=== PATIENT | male | born 1945 | race Caucasian/White ===

== ENCOUNTER 2017-07-21 10:30 | Observation (INO) | payer OTHER ==
[2017-07-21] VITALS (18 sets, daily range): BP systolic 111–166; BP diastolic 67–92; PULSE 66–83; TEMP 36.3–36.9; O2SAT 93–97; Ht 160 cm; Wt 74.0 kg
[~2017-07-21] VITALS: Ht 160 cm; Wt 74.0 kg
--- NOTE | 2017-07-21 10:24 | History and Physical ---
History & Physical Date of Service Jul 21, 2017. History & Physical CC: End stage renal disease with malfunctioning avf of the right arm HPI: Mr. Helms is a 69-year-old gentleman who is on dialysis at this time who recently had a thrombectomy of his fistula times 2 followed by a revision of his fistula. He is here for a fistulogram for a malfunctioning fistula ALLERGIES: POSITIVE FOR AMOXICILLIN, FENTANYL, VENOFER AND VITAMIN K. Medications: Listed on his chart and reviewed. No changes were made. Past Medical History: Positive for hypertension, heart disease, diabetes, renal failure. Past Surgical History: Cholecystectomy, appendectomy, stomach surgery, hernia repair, bowel surgeries in , , and . Family History: Positive for heart disease, hypertension and stroke. Social History: He quit smoking in 1989, he had smoked for 25 years prior. Review of Systems: Review of 10 systems were obtained. His only complaints were irregular heartbeat. Respiratory: Cough, wheezing, shortness of breath and bronchitis. He also complained of heartburn and prostate dysfunction. Physical Examination: The patient is awake, oriented x3, he is in no apparent distress. He is mildly obese. His blood pressure is 150/60 in the left, 146/60 on the right. Head and neck within normal limits. No carotid bruits. Lungs are clear. Heart: regular rate and rhythm, with occasional irregular beats. Lungs are clear with occasional crackles. Abdominal exam is benign. There are multiple scars present. Vascular exam was radials, carotids, supratemporal arteries and femorals are +2 bilaterally. Neurologic exam is grossly intact. Good thrill in fistula Impression : End-stage renal disease Malfunctioning avf. Plan and Recommendations: Patient is admitted for a fistulogram and possible intervention of his right upper arm fistula. He understands the risks, options and benefits, and agrees to go on with this procedure.
[~2017-07-21 10:30] MED LIST: ADVIN25/60 INH; ALBU1NEB10 INH; ALBUAER2 INH; ALFU10TA2 PO; ASCO10003 PO; ASPI1TAB83 PO; ATOR80TA PO; BENZ100C84 PO; CLINDAMYCIN 600 MG/54 ML D5W IV SCH; CLOB-65 TOP; CRD200 PO; D5W AND 1/4NSS 1000 ML IV SCH; DIGO0.122 PO; DILT-119 PO; DOCU-94 PO; EPGI10M SC; ERGO1CAP35 PO; EXELON PO; FENO67CA PO; FERR1TAB68 PO; FERR325T51 PO; FLUT0.15; FLUT0.15 NAE; FOLITAB22 PO; GABA-112 PO; HPRIS5MX SQ; HYDR-5688 PO; INSUINJ4 SQ; ISOS60TA2 PO; LACT10CA3; LIDO5DIS10 TOP; LOSA50TA6 PO; META-38 PO; METO25TA56 PO; MONT1TAB3 PO; NTRGSL/4 UT; NVLGI SC; OMEG10007 PO; OMEP20CA9 PO; POLY1POW2 PO; POLY99.02 OP; ROFL1TAB5 PO; SERT1TAB71 PO; TIOTCAP INH; TRAZ50TA35 PO; TRIA0.1C20 TOP; VITA100C4 PO; VITA1CRE PO; WARF2.5T8 PO; WARF5TAB90 PO
[2017-07-21] MEDS ORDERED: dulcolax PO (11:27)
[2017-07-21] MEDS ORDERED: auryxia PO (11:27)
[2017-07-21] MEDS ORDERED: OXYC1TAB3 PO (11:27)
[2017-07-21 11:29] LABS: PARTIAL THROMBOPLASTIN RATIO 1.2; PROTHROMBIN TIME (PATIENT) 10.5 SECONDS (9.0-12.0)
[2017-07-21] MEDS ORDERED: OXYCODONE/ACETAMINOPHEN 5-325 TAB PO PRN (11:30)
[2017-07-21] MEDS ORDERED: SODIUM POLYST. SULF SUSP 15G/60ML PO STA (13:22)
--- NOTE | 2017-07-21 13:22 | Progress Note ---
Progress Note Date of Service Jul 21, 2017. Progress Note Patient did not have dialysis since Thursday. Potassium today was 6.1 today. Per nephology, patient will need dialysis.
[2017-07-21] MEDS ORDERED: DEXTROSE 50% 50 ML SYR IV PRN (14:30)
[2017-07-21] MEDS ORDERED: GLUCAGON FOR INJ 1 MG VIAL SQ PRN (14:30)
[2017-07-21] MEDS ORDERED: GLUCOSE 10 TABS/TUBE PO PRN (14:30)
[2017-07-21] MEDS ORDERED: GLUCOSE 40% GEL 15 GM TUBE PO PRN (14:30)
--- NOTE | 2017-07-21 14:43 | History and Physical ---
History & Physical Date & Time of Service: Jul 21, 2017 at 14:40 Chief Complaint: End Stage Renal Disease Primary Care Physician: Dr. Salas History of Present Illness Source: patient, clinic records, hospital records This is a 72yo M with a PMH of ESRD requiring dialysis, DM II, CAD (s/p stents) , HF with preserved EF, COPD, HTN, HLD, depression and JENARO (on CPAP) who presented today for a fistulogram by Dr. Tomas. Has a history of a thrombectomy of his fistula twice before following the initial revision. Was here today for a fistulogram of his malfunctioning fistula. During pre- operative labs, patient was found to have a serum potassium level elevated to 6.1. Receives dialysis MWF normally but did not receive dialysis this past Thursday. Per Dr Tomas, fistulogram procedure will be postponed until after patient is dialyzed. Denies any lightheadedness, headache, visual changes, CP, palpitations, SOB, abdominal pain, nausea, vomiting, dysuria, constipation or diarrhea. No LE swelling. Patient reports taking all medications as directed. Past Medical/Surgical History Medical Problems: (1) CAD (coronary artery disease) Status: Chronic (2) COPD (chronic obstructive pulmonary disease) Status: Chronic (3) Depression Status: Chronic (4) Diabetes mellitus, type II Status: Chronic (5) Diastolic HF (heart failure) Status: Chronic (6) GERD (gastroesophageal reflux disease) Status: Chronic (7) HLD (hyperlipidemia) Status: Chronic (8) HTN (hypertension) Status: Chronic (9) Lumbar disc herniation with radiculopathy Status: Chronic (10) JENARO on CPAP Status: Chronic Family History Diabetes mellitus FATHER BROTHER Stroke FATHER Social History Smoking Status: Former Smoker (quit in 1989 ) Alcohol Use: none Drug Use: none Marital Status: Housing status: lives with significant other Occupational Status: retired Immunizations History of Influenza Vaccine: Yes Influenza Vaccine Date: Jun 27, 2005 History of Tetanus Vaccine?: Yes Tetanus Immunization Date: Dec 26, 2000 History of Pneumococcal: Yes Pneumococcal Date: Dec 26, 2001 History of Hepatitis B Vaccine: No Multi-Drug Resistant Organisms History of MDRO: No Allergies Coded Allergies: Amoxicillin (Verified Adverse Reaction, Unknown, DIZZY, 04/08/16) Ferric Oxide (Verified Adverse Reaction, Unknown, IV SEVERE CHEST PAIN, 04/08/16) Vitamin K (Verified Adverse Reaction, Unknown, CHEST PAIN WITH IV FORM, 04/08/16) Home Medications Scheduled Alfuzosin Hcl (Uroxatral), 10 MG PO QAM Artificial Tears (Artificial Tears), 1-2 DROPS OP BID Ascorbic Acid (Vitamin C), 500 MG PO QPM Aspirin (Aspirin), 1 TAB PO QAM Atorvastatin Calcium (Lipitor), 80 MG PO QPM Benzonatate (Tessalon Perles), 1 CAP PO TID Epoetin Manuel (Procrit), 10,000 UNIT SC DIRECTED Ergocalciferol (Vitamin D Cap), 50,000 INTER.UNIT PO MONTHLY Ferric Citrate (Auryxia), 210 MG PO ACM Ferrous Sulfate (Iron Supplement), 2,650 MG PO BID Fluticasone Prop/Salmeterol (Advair Diskus 250/50 60 Dose), 1 PUFF INH BID Fluticasone Propionate (Nasal) (Flonase Allergy Relief), 2 SPRAYS JASPAL QPM Fluticasone Propionate (Nasal) (Flonase Allergy Relief), 2 SPRAYS DAILY Folic Acid-Vitamin B6-Vitamin (B Complex/Folic Acid), PO DAILY Heparin Sod (Porcine) (Heparin Sq), 5,000 UNITS SQ DIALYSIS DAYS Insulin Aspart (Novolog), 10 UNITS SC AC Insulin Glargine (Lantus Solostar Pen), 35 UNIT SQ BID Isosorbide Mononitrate (Imdur Ext Rel), 30 MG PO QAM Metoprolol Tartrate (Lopressor) (Lopressor), 25 MG PO QAM Montelukast Sodium (Singulair), 10 MG PO QPM Nitroglycerin (Nitrostat), 0.4 MG UT PRN Omeprazole (Prilosec), 20 MG PO BID Sertraline Hcl (Zoloft), 50 MG PO HS Tiotropium [place] (Spiriva Handihaler), 1 CAP INH DAILY Triamcinolone Acet 0.1% (Aristocort 0.1%), Unknown Dose TOP BID [auryxia], 1 GM PO BIDM Scheduled PRN Albuterol (Ventolin), 2 PUFFS INH QID PRN for Shortness of Breath Albuterol Sulf (Albuterol Sulfate 0.083% For Inh), 3 ML INH Q4 PRN for Wheezing Clobetasol Propionate 0.05% (Temovate 0.05%), 1 APPLN TOP BID PRN for Affected Skin Folds Oxycodone Ir (Roxicodone Ir), 1-2 TAB PO Q6 PRN for Pain [dulcolax], 100 MG PO DAILY PRN for Constipation Miscellaneous Medications Gabapentin (Neurontin), 100 MG PO Review of Systems Ten systems reviewed and negative except as noted in the HPI. Physical Exam Vital Signs Date Time Temp Pulse Resp B/P (MAP) Pulse Ox O2 Delivery O2 Flow Rate FiO2 07/21/17 11:29 36.7 83 22 143/70 (94) 97 Room Air General Appearance: no apparent distress, + pertinent finding (Chronically ill appearing ) Head: normocephalic, atraumatic Eyes: normal inspection, PERRL, sclerae normal (Conjunctiva normal ) ENT: normal ENT inspection, hearing grossly normal, pharynx normal (Dry mucous membranes ) Neck: supple, no JVD, trachea midline Respiratory/Chest: chest non-tender, lungs clear, no respiratory distress, no accessory muscle use, + wheezing (Diffuse wheezing throughout lung jensen. ) Cardiovascular: regular rate, rhythm, no murmur Abdomen/GI: normal bowel sounds, non tender, soft, no organomegaly Back: normal inspection Extremities/Musculoskelatal: normal inspection, no calf tenderness, no pedal edema, non-tender, + pertinent finding (Fistula access in RUE ) Neurologic/Psych: no motor/sensory deficits, alert, normal mood/affect, oriented x 3 Skin: normal color (Diffuse ecchymosis ) Diagnostics Laboratory Results Results Past 24 Hours Test 07/21/17 11:07 07/21/17 11:09 Range/Units Prothrombin Time 10.5 9.0-12.0 SECONDS Prothromb Time International Ratio 1.0 0.9-1.1 Activated Partial Thromboplast Time 30.8 21.0-31.0 SECONDS Partial Thromboplastin Ratio 1.2 Potassium Level 6.1 3.5-5.1 mmol/L Bedside Glucose 92 70-99 mg/dl Impression Assessment and Plan This is a 72yo M with a PMH of ESRD requiring dialysis, DM II, CAD (s/p stents x 2), HF with preserved EF, COPD, HTN, HLD, depression and JENARO (on CPAP) who presented today for a fistulogram by Dr. Tomas. Hyperkalemia 2/2 ESRD: -K of 6.1 on lab work -Nephro consulted for dialysis -EKG pre and post dialysis -Recheck K -Fistulogram to be rescheduled by Dr. Tomas DM II: -Hgb a1c pending -Held home agents -SSI while in-patient. Add basal if indicated -BSG checks AC HS COPD: -Stable -Cont home inhalers, singulair HTN: -Cont home dose metoprolol HLD: -Cont statin CAD (s/p stents): -Stable, no CP -EKGs pending Diastolic HF: -Compensated -Cont imdur, metoprolol, baby aspirin JENARO: -CPAP qHS GERD: -Cont PPI DVT Ppx: Heparin SQ as directed on dialysis days Code status: FULL PCP: Josue Dispo: Plan to return home once medically stable Patient seen in collaboration with Dr. Reid. Please see addendum. Attending physician, Dr. Reid, addendum: I have seen and examined the patient with NAHEED White and agree with the assessment and plan as above and would like to comment that this a 72 year old well appearing male patient who was scheduled for vascular procedure fistulogram today which could not be performed due to abnormal labs hyperkalemia with serum potassium 6.1. As per nephrology, Dr. Hsieh, patient to be admitted to hospital service for dialysis. Patient may need subsequent lab post-dialysis before discharge. As per vascular surgeon Dr. Tomas, patient does not need to be kept inpatient for fistulogram which can be done at a later date as outpatient. Patient and her family member was explained these plans. They agree for the patient to stay overnight if needed. Patient also has EKG obtained which did not show any obvious morphologies of hyperkalemia induced EG changes. Patient denies chest pain or shortness of breath or palpitations. Level of Care Med/Surg Resuscitation Status FULL RESUSCITATION VTE Prophylaxis VTE Risk Assessment Done? Y/N: Yes Risk Level: Moderate
[2017-07-21] MEDS ORDERED: NITROGLYCERIN 0.4 MG SL PER TAB CHARGE UT PRN (15:45)
[2017-07-21] MEDS ORDERED: HEPARIN SOD 5000 UNIT/0.5 ML CARP SQ SCH (15:45)
[2017-07-21] MEDS ORDERED: OXYCODONE HCL IR 5 MG TAB (IMMEDIATE RELEASE) PO PRN (15:45)
[2017-07-21] MEDS ORDERED: ALBUTEROL HFA 8 GM INHALER INH PRN (15:45)
[2017-07-21] MEDS ORDERED: EPOETIN ALFA 10,000 UNITS/ML VIAL SC SCH (16:00)
[2017-07-21] MEDS ORDERED: NURSING VERBAL MED ORDER ONE (20:45)
[2017-07-21] MEDS ORDERED: MONTELUKAST SOD 10 MG TAB PO SCH (21:00)
[2017-07-21] MEDS ORDERED: FLUTICASONE PROPIONATE NA SPR 16 GM BTL NAE SCH (21:00)
[2017-07-21] MEDS ORDERED: SERTRALINE HCL 50 MG TAB PO SCH (21:00)
[2017-07-21] MEDS ORDERED: ASCORBIC ACID 500 MG TAB PO SCH (21:00)
[2017-07-21 21:28] LABS: ALB/GLOB RATIO 0.9 (0.9-2); BUN/CREATININE RATIO 8.1 (10-20); CALCIUM 8.1 mg/dl (8.5-10.1); CREATININE 5.28 mg/dl (0.60-1.40); POTASSIUM 4.7 mmol/L (3.5-5.1)
[2017-07-21] MEDS: INSULIN ASPART 100 UNITS/ML 3 ML PEN SC SCH (21:37)
[2017-07-21] MEDS: FERROUS SULFATE 325 MG TAB PO SCH (21:39)
[2017-07-21] MEDS: FLUTICASONE/SALMETEROL 250/50 (ADVAIR) 14 PUFF/1 INHALER INH SCH (21:41)
[2017-07-22 03:55] VITALS: BP 138/73; PULSE 76
[2017-07-22 06:31] LABS: ESTIMATED AVERAGE GLUCOSE 123 mg/dl; HA1C FLAG Normal (Normal); HEMATOCRIT 39.7 % (42-52); MEAN CELL VOLUME 89.4 fL (80-100); MEAN CORPUSCULAR HEMOGLOBIN 26.6 pg (25-34); MEAN CORPUSCULAR HGB CONC 29.7 g/dl (32-36); PLATELET COUNT 65 K/uL (130-400); PLT ESTIMATE DECREASED; RED BLOOD COUNT 4.44 M/uL (4.7-6.1); WHITE BLOOD COUNT 4.59 K/uL (4.8-10.8)
[2017-07-22 06:53] LABS: BUN/CREATININE RATIO 8.3 (10-20); CALCIUM 7.9 mg/dl (8.5-10.1); CREATININE 6.01 mg/dl (0.60-1.40); POTASSIUM 4.7 mmol/L (3.5-5.1)
[2017-07-22 07:47] VITALS: BP 130/78; PULSE 70; TEMP 36.9; O2SAT 96
[2017-07-22 07:56] VITALS: O2SAT 96
--- NOTE | 2017-07-22 08:54 | Progress Note ---
Medicine Progress Note Date & Time of Visit: Jul 22, 2017 at 08:48. Subjective patient seen sitting up in chair, just had breakfast in good spirits, comfortable states he feels well overall denies chest pain, dyspnea, palpitations, dizziness no signs of bleeding states he is ready and would like to be discharged today Objective Last 8 Hrs Date Time Temp Pulse Resp B/P (MAP) Pulse Ox O2 Delivery O2 Flow Rate FiO2 07/22/17 07:56 96 Room Air 07/22/17 07:47 36.9 70 14 130/78 (95) 96 Room Air 07/22/17 03:55 76 138/73 (94) Physical Exam: General- oriented x 3, not in distress, speaks in sentences with no effort Head- atraumatic Eyes- PERRL, EOMI, anicteric ENT- oropharynx clear Neck- supple, no JVD, no adenopathy, no thyromegaly Lungs- clear to auscultation bilaterally Heart- regular rhythm; no murmur, normal rate Abdomen- normal bowel sounds, soft, nontender Extremities- (+) fistula on the right arm no pretibial edema, no calf tenderness; peripheral pulses intact Neuro- alert, oriented x 3; PERRL, EOMI; no facial palsy; no dysarthria; motor 5 /5 bilaterally;no other gross focal neuro deficit Skin- warm & dry Laboratory Results: Last 24 Hours Test 07/21/17 11:07 07/21/17 11:09 07/21/17 19:06 07/21/17 20:22 Prothrombin Time 10.5 SECONDS Prothromb Time International Ratio 1.0 Activated Partial Thromboplast Time 30.8 SECONDS Partial Thromboplastin Ratio 1.2 Potassium Level 6.1 mmol/L 4.7 mmol/L Bedside Glucose 92 mg/dl 96 mg/dl Sodium Level 138 mmol/L Chloride Level 101 mmol/L Carbon Dioxide Level 24 mmol/L Anion Gap 11.0 mmol/L Blood Urea Nitrogen 43 mg/dl Creatinine 5.28 mg/dl Est Creatinine Clear Calc Drug Dose 11.1 ml/min Estimated GFR () 11.4 Estimated GFR (Non- 9.9 BUN/Creatinine Ratio 8.1 Random Glucose 106 mg/dl Calcium Level 8.1 mg/dl Total Bilirubin 0.6 mg/dl Aspartate Amino Transf (AST/SGOT) 16 U/L Alanine Aminotransferase (ALT/SGPT) 20 U/L Alkaline Phosphatase 227 U/L Total Protein 6.3 gm/dl Albumin 2.9 gm/dl Globulin 3.4 gm/dl Albumin/Globulin Ratio 0.9 Test 07/21/17 20:41 07/22/17 05:47 07/22/17 07:34 Bedside Glucose 115 mg/dl White Blood Count 4.59 K/uL Red Blood Count 4.44 M/uL Hemoglobin 11.8 g/dL Hematocrit 39.7 % Mean Corpuscular Volume 89.4 fL Mean Corpuscular Hemoglobin 26.6 pg Mean Corpuscular Hemoglobin Concent 29.7 g/dl RDW Standard Deviation 55.9 fL RDW Coefficient of Variation 17.1 % Platelet Count 65 K/uL Platelet Estimate DECREASED Sodium Level 136 mmol/L Potassium Level 4.7 mmol/L Chloride Level 102 mmol/L Carbon Dioxide Level 26 mmol/L Anion Gap 8.0 mmol/L Blood Urea Nitrogen 50 mg/dl Creatinine 6.01 mg/dl Est Creatinine Clear Calc Drug Dose 9.7 ml/min Estimated GFR () 9.8 Estimated GFR (Non- 8.4 BUN/Creatinine Ratio 8.3 Random Glucose 139 mg/dl Estimated Average Glucose 123 mg/dl Hemoglobin A1c 5.9 % Calcium Level 7.9 mg/dl Date/Time Source Procedure Growth Status 07/21/17 23:45 Nasal MRSA DNA Surveillance Screen - Final Specimen Negative for MRSA by DNA Probe Complete Assessment & Plan This is a 72yo M with a PMH of ESRD requiring dialysis, DM II, CAD (s/p stents x 2), HF with preserved EF, COPD, HTN, HLD, depression and JENARO (on CPAP) who presented today for a fistulogram by Dr. Tomas. Hyperkalemia 2/2 ESRD: -K of 6.1 on lab work -Nephro consulted s/p HD on the day of admission K improved to 4.7 -Fistulogram to be rescheduled by Dr. Tomas - continue HD as outpatient Thrombocytopenia - Plt 65 - no signs of bleeding - hold ASA, repeat Plt this week discussed with Dr. Hsieh, Nephro will also ff up as outpatient DM II: - continue usual regimen monitor as outpatient COPD: -Stable -Cont home inhalers, singulair HTN: -Cont home dose metoprolol HLD: -Cont statin CAD (s/p stents): -Stable no cardiac symptom Diastolic CHF: - euvolemic -Cont imdur, metoprolol JENARO: -CPAP qHS GERD: -Cont PPI Code status: FULL PCP: Josue Dispo: d/c home ff up with PCP in 3-5 days ff up with Nephro for HD as scheduled Current Inpatient Medications: Current Inpatient Medications Medications (Trade) Dose Ordered Sig/Dedrick Route Start Time Stop Time Status Last Admin Dose Admin Insulin Aspart (novoLOG ASPART) SLIDING SCALE If C... ACHS SC 07/21/17 21:00 08/20/17 20:59 Glucose (Glucose 40% Gel) 15-30 GRAMS 15 GRAMS... UD PRN PO 07/21/17 14:30 08/20/17 14:29 Glucose (Glucose Chew Tab) 4-8 Tablets 4 Tabl... UD PRN PO 07/21/17 14:30 08/20/17 14:29 Dextrose (Dextrose 50% 50ML Syringe) 25-50ML OF 50% DW IV FOR... UD PRN IV 07/21/17 14:30 08/20/17 14:29 Glucagon (Glucagon Inj) 1 mg UD PRN SQ 07/21/17 14:30 08/20/17 14:29 Albuterol (Ventolin Hfa Inhaler) 2 puffs QID PRN INH 07/21/17 15:45 08/20/17 15:44 Alfuzosin HCl (Uroxatral Tab) 10 mg QAM PO 07/22/17 09:00 08/21/17 08:59 Aspirin (Ecotrin Tab) 81 mg QAM PO 07/22/17 09:00 08/21/17 08:59 Atorvastatin Calcium (Lipitor Tab) 80 mg QPM PO 07/22/17 21:00 08/21/17 20:59 Salmeterol Xinafoate/ Fluticasone (Advair Diskus 250/50 Inh) 1 puff BID INH 07/21/17 21:00 08/20/17 20:59 07/21/17 21:41 1 PUFF Fluticasone Propionate (Flonase Nasal [place]) 2 sprays DAILY JASPAL 07/22/17 09:00 08/21/17 08:59 Fluticasone Propionate (Flonase Nasal [place]) 2 sprays QPM JASPAL 07/21/17 21:00 08/20/17 20:59 07/21/17 21:41 2 SPRAYS Gabapentin (Neurontin Cap) 100 mg DAILY PO 07/22/17 09:00 08/21/17 08:59 Isosorbide Mononitrate (Imdur Ext Rel Tab) 30 mg QAM PO 07/22/17 09:00 08/21/17 08:59 Metoprolol Tartrate (Lopressor Tab) 25 mg QAM PO 07/22/17 09:00 08/21/17 08:59 Montelukast Sodium (Singulair Tab) 10 mg QPM PO 07/21/17 21:00 08/20/17 20:59 07/21/17 21:40 10 MG Nitroglycerin (Nitrostat Tab) 0.4 mg UD PRN UT 07/21/17 15:45 08/20/17 15:44 Oxycodone HCl (Roxicodone Immediate Rel Tab) 5 mg Q6 PRN PO 07/21/17 15:45 08/04/17 15:44 Sertraline HCl (Zoloft Tab) 50 mg HS PO 07/21/17 21:00 08/20/17 20:59 07/21/17 21:40 50 MG Tiotropium [place] (Spiriva Handihaler Inhaler) 1 puff DAILY INH 07/22/17 09:00 08/21/17 08:59 Ascorbic Acid (Vitamin C Tab) 500 mg QPM PO 07/21/17 21:00 08/20/17 20:59 07/21/17 21:40 500 MG Miscellaneous Information (Order Awaiting Action) 1 ea QS N/A 07/22/17 00:00 08/21/17 00:00 Ferrous Sulfate (Feosol Tab) 650 mg BID PO 07/21/17 21:00 08/20/17 20:59 07/21/17 21:39 650 MG Pantoprazole Sodium (Protonix Tab) 40 mg QAM PO 07/22/17 09:00 08/21/17 08:59 Heparin Sodium (Porcine) (Heparin 100 Unit/ml 5ml Flush) 5 ml PRN PRN FLUSH 07/21/17 20:45 08/20/17 20:44 07/22/17 06:39 5 ML
[2017-07-22] MEDS ORDERED: ALFUZosin TAB 10 MG TAB PO SCH (09:00)
[2017-07-22] MEDS ORDERED: FLUTICASONE PROPIONATE NA SPR 16 GM BTL NAE SCH (09:00)
[2017-07-22] MEDS ORDERED: METOPROLOL TARTRATE 25 MG TAB PO SCH (09:00)
[2017-07-22] MEDS ORDERED: ASPIRIN 81 MG ECTAB PO SCH (09:00)
[2017-07-22] MEDS ORDERED: TIOTROPIUM BROMIDE 5 PUFF/90 MCG INH INH SCH (09:00)
[2017-07-22] MEDS ORDERED: GABAPENTIN 100 MG CAP PO SCH (09:00)
[2017-07-22] MEDS ORDERED: PANTOprazole SOD 40 MG TAB PO SCH (09:00)
[2017-07-22] MEDS ORDERED: ISOSORBIDE MONONITRATE 30 MG TABCR PO SCH (09:00)
[2017-07-22] MEDS: FLUTICASONE/SALMETEROL 250/50 (ADVAIR) 14 PUFF/1 INHALER INH SCH (09:01)
--- NOTE | 2017-07-22 09:02 | NEPHROLOGY CONSULTATION ---
DATE OF CONSULTATION: 07/22/2017 ATTENDING OF RECORD: Dr. Cary. REASON FOR CONSULTATION: End-stage renal disease and hyperkalemia. HISTORY OF PRESENT ILLNESS: This is a 72-year-old male who gets dialysis on Mondays, Wednesdays, and Fridays at the [facility]. The patient's last dialysis treatment was Thursday. The patient did not feel well on Thursday, so decided not to go to dialysis and comes on Thursday for his fistulogram and found to have an elevated potassium of 6.1 and decided not to do the fistulogram and was unable to get dialysis at the outpatient dialysis unit. So, the patient was brought into the hospital overnight for dialysis to help lower the potassium levels. The patient this morning is feeling better. During dialysis, the patient did have elevated venous flows; however, did run well. This morning, the patient's potassium level improved to 4.7. Of note, the patient's platelet count was low at 65. INR was good at 1. PAST MEDICAL HISTORY: Coronary artery disease, COPD, type 2 diabetes, congestive heart failure, hyperlipidemia, hypertension, obstructive sleep apnea, and degenerative disk disease. PAST SURGICAL HISTORY: Fistula placement. FAMILY HISTORY: Significant for diabetes. SOCIAL HISTORY: Former smoker. No alcohol and no drugs. He is . CURRENT MEDICATIONS: Lipitor 80 mg a day, alfuzosin 10 mg daily, aspirin 81 mg daily, Flonase 2 sprays daily, Neurontin 100 mg daily, Imdur 30 mg daily, Lopressor 25 mg daily, Spiriva inhaler daily, Protonix 40 mg daily, Advair inhaler twice a day, Singulair 10 mg at night, Zoloft 50 mg at night, vitamin C 500 mg at night, and iron 650 mg p.o. b.i.d. REVIEW OF SYSTEMS: No chest pain. No shortness of breath. No nausea or vomiting. No diarrhea or constipation. No headaches. No blurry vision. No significant complaints. All other review of systems otherwise negative. PHYSICAL EXAMINATION: VITAL SIGNS: Temperature 36.9, pulse 70, respiratory rate 14, blood pressure 130/78, and satting 96% on room air. GENERAL: Awake, alert, and oriented x3. EYES: No scleral icterus. ENT: Moist mucous membranes. NECK: Supple. PULMONARY: Slight end expiratory wheeze. CARDIAC: Regular rate and rhythm. ABDOMEN: Bowel sounds positive. Soft and nontender. EXTREMITIES: No clubbing, cyanosis or edema. NEUROLOGICALLY: Nonfocal. DERMATOLOGIC: No rash or ulcers noted. LABORATORY DATA: INR is 1. Sodium level is 136, potassium 4.7, chloride is 102, bicarbonate is 26, BUN is 50, creatinine 6, and glucose 139. Hemoglobin A1c is 5.9. Calcium 7.9. White count is 4, H&H 11 and 39, and platelet count 65. IMPRESSION AND PLAN: 1. End-stage renal disease. The patient had emergent dialysis yesterday for hyperkalemia secondary to going too long without dialysis. The patient did miss Thursday's treatment. Previous treatment was last Thursday. I reinforced the importance of going to dialysis on regularly scheduled days. He had dialysis yesterday on a 2K bath and potassium level is much better today. Today is his regular dialysis day and the patient would like to go to his outpatient dialysis unit for dialysis. 2. Thrombocytopenia. Platelet count is low. I relayed the message to Dr. Mcrae, his primary agricultural commodities grader in [place] and we will follow platelet counts as an outpatient. 3. Access. The patient does have poor venous flows and will need a fistulogram rescheduled at a later date and we will defer to Dr. Simoni. Fernandez from a renal perspective to be discharged today. I appreciate the consultation.
[2017-07-22] MEDS: FERROUS SULFATE 325 MG TAB PO SCH (09:05)
[2017-07-22] MEDS: INSULIN ASPART 100 UNITS/ML 3 ML PEN SC SCH (09:13)
--- NOTE | 2017-07-22 09:15 | Discharge Summary ---
Discharge Summary Date of Service Jul 22, 2017. Discharge Summary Admission Date: Jul 21, 2017 at 14:18 Discharge Date: Jul 22, 2017 Discharge Disposition: Home Principal Diagnosis: Hyperkalemia 2/2 ESRD Secondary Diagnoses/Problems: Please refer to hospital course below. Procedures: Hemodialysis Consultations: Nephro- Dr. Hsieh Pending Studies/Follow-Up: Aspirin held for Plt level of 65k; Repeat CBC and resume Aspirin accordingly. ( Has history of Cardiac Stent). Medication Reconciliation Continued Medications: Albuterol (Ventolin) Inh 2 PUFFS INH QID PRN for Shortness of Breath for 5 Days, INHALER INSTRUCTED TO BRING DAY OF SURGERY Albuterol Sulf (Albuterol Sulfate 0.083% For Inh) 3 Ml Nebu 3 ML INH Q4 PRN for Wheezing Alfuzosin Hcl (Uroxatral) 10 Mg Tab 10 MG PO QAM, TAB Artificial Tears (Artificial Tears) Soln 1-2 DROPS OP BID, #1 BTL TO AFFECTED EYE PRN Ascorbic Acid (Vitamin C) 1,000 Mg Tab 500 MG PO QPM Atorvastatin Calcium (Lipitor) 80 Mg Tab 80 MG PO QPM, TAB Benzonatate (Tessalon Perles) 100 Mg Cap 1 CAP PO TID for 10 Days, #30 CAP Clobetasol Propionate 0.05% (Temovate 0.05%) Cr 1 APPLN TOP BID PRN for Affected Skin Folds for 7 Days, #15 GM Epoetin Manuel (Procrit) 10,000 Unit/ Inj 07648 UNIT SC DIRECTED, VIAL GIVEN AT DIALYSIS Ergocalciferol (Vitamin D Cap) 50,000 Interunit Cap 66678 INTER.UNIT PO MONTHLY, CAP THIRD WEEK OF MONTH Ferric Citrate (Auryxia) 210 Mg Tab 210 MG PO ACM Ferrous Sulfate (Iron Supplement) 325 Mg Tab 650 MG PO BID for 30 Days, #30 TAB 10 Refills Fluticasone Prop/Salmeterol (Advair Diskus 250/50 60 Dose) 1 Ea Aerp 1 PUFF INH BID, INHALER INSTRUCTED TO TAKE AM SURGERY Fluticasone Propionate (Nasal) (Flonase Allergy Relief) 50 Mcg/Act Spr 2 SPRAYS JASPAL QPM Fluticasone Propionate (Nasal) (Flonase Allergy Relief) 50 Mcg/Act Spr 2 SPRAYS DAILY Folic Acid-Vitamin B6-Vitamin (B Complex/Folic Acid) 1 Tab Tab PO DAILY Gabapentin (Neurontin) 100 Mg Cap 100 MG PO, CAP Heparin Sod (Porcine) (Heparin Sq) 5,000 Unit/0.5 Ml Inj 5000 UNITS SQ DIALYSIS DAYS Insulin Aspart (Novolog) 100 Unit/ Inj 10 UNITS SC AC, BTL INSTRUCTED TO HOLD AM SURGERY Insulin Glargine (Lantus Solostar Pen) 100 Unit/ Inj 35 UNIT SQ BID for 30 Days, #15 ML 3 Refills Isosorbide Mononitrate (Imdur Ext Rel) 60 Mg Tab 30 MG PO QAM, TAB INSTRUCTED TO TAKE AM SURGERY SIP WATER Metoprolol Tartrate (Lopressor) (Lopressor) 25 Mg Tab 25 MG PO QAM, TAB INSTRUCTED TO TAKE AM SURGERY SIP WATER Montelukast Sodium (Singulair) 10 Mg Tab 10 MG PO QPM, TAB Nitroglycerin (Nitrostat) 0.4 Mg Tab 0.4 MG UT PRN, BTL Omeprazole (Prilosec) 20 Mg Cap 20 MG PO BID, CAP INSTRUCTED TO TAKE AM SURGERY SIP WATER Oxycodone Ir (Roxicodone Ir) 5 Mg Tab 1-2 TAB PO Q6 PRN for Pain, #12 TAB Sertraline Hcl (Zoloft) 50 Mg Tab 50 MG PO HS, TAB Tiotropium [place] (Spiriva Handihaler) 18 Mcg/ Aerp 1 CAP INH DAILY, INHALER Triamcinolone Acet 0.1% (Aristocort 0.1%) Cr Unknown Dose TOP BID [auryxia] () 1 GM PO BIDM [dulcolax] () 100 MG PO DAILY PRN for Constipation Discontinued Medications: Aspirin (Aspirin) 81 Mg Tab 1 TAB PO QAM for 30 Days, #30 TAB 3 Refills Admission Information HPI (per Admitting provider): This is a 72yo M with a PMH of ESRD requiring dialysis, DM II, CAD (s/p stents) , HF with preserved EF, COPD, HTN, HLD, depression and JENARO (on CPAP) who presented today for a fistulogram by Dr. Tomas. Has a history of a thrombectomy of his fistula twice before following the initial revision. Was here today for a fistulogram of his malfunctioning fistula. During pre- operative labs, patient was found to have a serum potassium level elevated to 6.1. Receives dialysis MWF normally but did not receive dialysis this past Thursday. Per Dr Tomas, fistulogram procedure will be postponed until after patient is dialyzed. Denies any lightheadedness, headache, visual changes, CP, palpitations, SOB, abdominal pain, nausea, vomiting, dysuria, constipation or diarrhea. No LE swelling. Patient reports taking all medications as directed. Physical Exam (per Admitting): General Appearance: no apparent distress, + pertinent finding (Chronically ill appearing ) Head: normocephalic, atraumatic Eyes: normal inspection, PERRL, sclerae normal (Conjunctiva normal ) ENT: normal ENT inspection, hearing grossly normal, pharynx normal (Dry mucous membranes ) Neck: supple, no JVD, trachea midline Respiratory/Chest: chest non-tender, lungs clear, no respiratory distress, no accessory muscle use, + wheezing (Diffuse wheezing throughout lung jensen. ) Cardiovascular: regular rate, rhythm, no murmur Abdomen/GI: normal bowel sounds, non tender, soft, no organomegaly Back: normal inspection Extremities/Musculoskelatal: normal inspection, no calf tenderness, no pedal edema, non-tender, + pertinent finding (Fistula access in RUE ) Neurologic/Psych: no motor/sensory deficits, alert, normal mood/affect, oriented x 3 Skin: normal color (Diffuse ecchymosis ) Hospital Course This is a 72yo M with a PMH of ESRD requiring dialysis, DM II, CAD (s/p stents x 2), HF with preserved EF, COPD, HTN, HLD, depression and JENARO (on CPAP) who presented today for a fistulogram by Dr. Tomas. Hyperkalemia 2/2 ESRD: -K of 6.1 on lab work -Nephro consulted s/p HD on the day of admission K improved to 4.7 -Fistulogram to be rescheduled by Dr. Tomas - continue HD as outpatient Thrombocytopenia - Plt 65 - no signs of bleeding - hold ASA, repeat Plt this week discussed with Dr. Hsieh, Nephro will also ff up as outpatient DM II: - continue usual regimen monitor as outpatient COPD: -Stable -Cont home inhalers, singulair HTN: -Cont home dose metoprolol HLD: -Cont statin CAD (s/p stents): -Stable no cardiac symptom Diastolic CHF: - euvolemic -Cont imdur, metoprolol JENARO: -CPAP qHS GERD: -Cont PPI Code status: FULL PCP: Josue Dispo: d/c home ff up with PCP in 3-5 days ff up with Nephro for HD as scheduled Total time spent on discharge = 40 minutes This includes examination of the patient, discharge planning, medication reconciliation, and communication with other providers. Discharge Instructions Discharge Instructions Date of Service Jul 22, 2017. Admission Reason for Admission: Esrd Needing Dialysis, Hyperkalemia Discharge Discharge Diagnosis / Problem: ELEVATED POTASSIUM LEVEL Discharge Goals Goal(s): Diagnostic testing, Therapeutic intervention Activity Recommendations Activity Limitations: resume your previous activity . Instructions / Follow-Up Instructions / Follow-Up HOLD Aspirin for now because your platelet count is low. Repeat Blood Work for Platelet count on Thursday. You will be advised to resume your Aspirin when your platelet level improves. Contact your doctor or return to ER immediately if with signs of bleeding. Follow up with Primary Care Provider at [facility] on at 2: 45pm with Claudia Barrios. Follow up with [facility] for Hemodialysis as scheduled. Current Hospital Diet Patient's current hospital diet: Renal Diet, Diabetes Type 2 Diet Discharge Diet Recommended Diet: Diabetes Type 2 Diet, Renal Diet Procedures Procedures Performed: Hemodialysis Pending Studies Studies pending at discharge: yes List of pending studies: Repeat Blood Work (CBC) on Thursday. Laboratory Results Hemoglobin A1c Test 07/22/17 05:47 Range/Units Estimated Average Glucose 123 mg/dl Hemoglobin A1c 5.9 H 4.5-5.6 % Medical Emergencies . Who to Call and When: Medical Emergencies: If at any time you feel your situation is an emergency, please call 911 immediately. . Non-Emergent Contact Non-Emergency issues call your: Primary Care Provider, [facility] Call Non-Emergent contact if: you have a fever, you have any medication questions . . "Provider Documentation" section prepared by Antony Cary. . VTE Core Measure Inpt VTE Proph given/why not?: Contraindicated (Low Platelet level)
[2017-07-22 09:24] LABS: HEMATOCRIT 40.9 % (42-52); MEAN CELL VOLUME 88.5 fL (80-100); MEAN CORPUSCULAR HEMOGLOBIN 27.1 pg (25-34); RED BLOOD COUNT 4.62 M/uL (4.7-6.1); WHITE BLOOD COUNT 4.51 K/uL (4.8-10.8)
[2017-07-22 09:43] LABS: ANISOCYTOSIS PRESENT; COMPLETE YES; EOS % 1.3 %; HYPERSEGMENTED POLYS 1+; IG% 0.4 %; LYMPH % 21.1 %; LYMPH ABS # 0.95 K/uL (1.2-3.4); MEAN CORPUSCULAR HGB CONC 30.6 g/dl (32-36); MONO % 10.9 %; NEUT % 66.3 %; PLATELET COUNT 76 K/uL (130-400); PLT ESTIMATE DECREASED
[2017-07-22 09:57] LABS: COMPLETE YES; EOS % 1.3 %; IG% 0.4 %; LYMPH % 21.2 %; LYMPH ABS # 0.95 K/uL (1.2-3.4); NEUT % 62.1 %
[2017-07-22 10:00] VITALS: BP 130/78; PULSE 70; TEMP 36.9; O2SAT 96
[2017-07-22] MEDS ORDERED: ATORVASTATIN 40 MG TAB PO SCH (21:00)
== END 2017-07-22 10:43 | disposition home or self-care (01) ==
LOC: C.ACU 10:30 → C.MSW 14:18 → EDBEDREQSVC 15:18 → ENRESERV 15:33
PROVIDERS: ADMIT Hospitalist; ATTEND Internal Medicine
DX: N18.6 End stage renal disease (principal); E87.5 Hyperkalemia; I13.2 Hypertensive heart and chronic kidney disease with heart failure and with stage 5 chronic kidney disease, or end stage renal disease; E11.22 Type 2 diabetes mellitus with diabetic chronic kidney disease; I50.30 Unspecified diastolic (congestive) heart failure; D69.6 Thrombocytopenia, unspecified; Z99.2 Dependence on renal dialysis; I25.10 Atherosclerotic heart disease of native coronary artery without angina pectoris; E78.5 Hyperlipidemia, unspecified; K21.9 Gastro-esophageal reflux disease without esophagitis; J44.9 Chronic obstructive pulmonary disease, unspecified; G47.33 Obstructive sleep apnea (adult) (pediatric); M51.16 Intervertebral disc disorders with radiculopathy, lumbar region; F32.9 Major depressive disorder, single episode, unspecified; Z95.5 Presence of coronary angioplasty implant and graft; Z87.891 Personal history of nicotine dependence; Z79.4 Long term (current) use of insulin; Z79.899 Other long term (current) drug therapy